=== PATIENT | female | born 1945 | race Two or more races ===

== ENCOUNTER → 2018-01-16 | Outpatient (CLI) | payer MEDICARE, OTHER | END | disposition home health service (06) | LOC: WOU 12:46 | PROVIDERS: ATTEND Podiatrist Foot & Ankle Surgery | DX: L03.116 Cellulitis of left lower limb (principal); E11.42 Type 2 diabetes mellitus with diabetic polyneuropathy; E66.9 Obesity, unspecified; R60.0 Localized edema; Z68.42 Body mass index [BMI] 45.0-49.9, adult; Z79.4 Long term (current) use of insulin; Z85.3 Personal history of malignant neoplasm of breast; Z90.12 Acquired absence of left breast and nipple; E11.65 Type 2 diabetes mellitus with hyperglycemia | CPT/HCPCS: 11042; A6402; Z7610 ==

== ENCOUNTER 2018-01-23 09:22 | Outpatient (CLI) | payer MEDICARE, OTHER | END 2018-01-23 23:59 | disposition home health service (06) | LOC: WOU 09:22 | PROVIDERS: ATTEND Podiatrist Foot & Ankle Surgery | DX: L03.116 Cellulitis of left lower limb (principal); E11.65 Type 2 diabetes mellitus with hyperglycemia; Z79.4 Long term (current) use of insulin; S90.562S Insect bite (nonvenomous), left ankle, sequela; W57.XXXS Bitten or stung by nonvenomous insect and other nonvenomous arthropods, sequela; L97.529 Non-pressure chronic ulcer of other part of left foot with unspecified severity | CPT/HCPCS: 11042; A6402; Z7610 ==

== ENCOUNTER 2018-03-06 09:06 | Outpatient (CLI) | payer MEDICARE, OTHER | END 2018-03-06 23:59 | disposition home or self-care (01) | LOC: WOU 09:06 | PROVIDERS: ATTEND Podiatrist Foot & Ankle Surgery | DX: I87.2 Venous insufficiency (chronic) (peripheral) (principal); L97.828 Non-pressure chronic ulcer of other part of left lower leg with other specified severity; I89.0 Lymphedema, not elsewhere classified; I73.9 Peripheral vascular disease, unspecified; I10 Essential (primary) hypertension; E11.9 Type 2 diabetes mellitus without complications; Z85.3 Personal history of malignant neoplasm of breast; Z90.12 Acquired absence of left breast and nipple; Z79.4 Long term (current) use of insulin | CPT/HCPCS: G0463; Z7610 ==

== ENCOUNTER 2018-03-12 10:22 | Outpatient (CLI) | payer MEDICARE, OTHER | END 2018-03-12 23:59 | disposition home or self-care (01) | LOC: WOU 10:22 | PROVIDERS: ATTEND Podiatrist Foot & Ankle Surgery | DX: I87.2 Venous insufficiency (chronic) (peripheral) (principal); I73.9 Peripheral vascular disease, unspecified | CPT/HCPCS: 93970-TC; Z7610 ==

== ENCOUNTER 2018-03-13 08:45 | Outpatient (CLI) | payer MEDICARE, OTHER | END 2018-03-13 23:59 | disposition home or self-care (01) | LOC: WOU 08:45 | PROVIDERS: ATTEND Podiatrist Foot & Ankle Surgery | DX: R60.0 Localized edema (principal); M76.72 Peroneal tendinitis, left leg; G58.8 Other specified mononeuropathies; I89.0 Lymphedema, not elsewhere classified; L97.828 Non-pressure chronic ulcer of other part of left lower leg with other specified severity | CPT/HCPCS: G0463; Z7610 ==

== ENCOUNTER 2018-03-27 09:21 | Outpatient (CLI) | payer MEDICARE, OTHER | END 2018-03-27 23:59 | disposition home or self-care (01) | LOC: WOU 09:21 | PROVIDERS: ATTEND Podiatrist Foot & Ankle Surgery | DX: I87.312 Chronic venous hypertension (idiopathic) with ulcer of left lower extremity (principal); L97.828 Non-pressure chronic ulcer of other part of left lower leg with other specified severity; M79.672 Pain in left foot; E11.9 Type 2 diabetes mellitus without complications; Z86.718 Personal history of other venous thrombosis and embolism; Z79.899 Other long term (current) drug therapy | CPT/HCPCS: G0463; Z7610 ==

== ENCOUNTER 2018-04-07 10:05 | Outpatient (CLI) | payer MEDICARE, OTHER | END 2018-04-07 23:59 | disposition home or self-care (01) | LOC: WOU 10:05 | PROVIDERS: ATTEND Podiatrist Foot & Ankle Surgery | DX: I87.302 Chronic venous hypertension (idiopathic) without complications of left lower extremity (principal); Z86.718 Personal history of other venous thrombosis and embolism; I89.0 Lymphedema, not elsewhere classified; E11.9 Type 2 diabetes mellitus without complications; Z79.4 Long term (current) use of insulin; Z79.899 Other long term (current) drug therapy | CPT/HCPCS: G0463; Z7610 ==

== ENCOUNTER 2018-06-12 14:49 | Outpatient (CLI) | payer MEDICARE, OTHER | END 2018-06-12 23:59 | disposition home or self-care (01) | LOC: WOU 14:49 | PROVIDERS: ATTEND Podiatrist Foot & Ankle Surgery | DX: R60.0 Localized edema (principal); R93.89 Abnormal findings on diagnostic imaging of other specified body structures | CPT/HCPCS: 93970-TC; Z7610 ==

== ENCOUNTER 2018-06-30 13:45 | Outpatient (CLI) | payer MEDICARE, OTHER | END 2018-06-30 23:59 | disposition home or self-care (01) | LOC: WOU 13:45 | PROVIDERS: ATTEND Podiatrist Foot & Ankle Surgery | DX: I87.2 Venous insufficiency (chronic) (peripheral) (principal); R60.0 Localized edema; M79.672 Pain in left foot; B35.1 Tinea unguium; E11.9 Type 2 diabetes mellitus without complications; Z79.4 Long term (current) use of insulin | CPT/HCPCS: G0463; Z7610 ==

== ENCOUNTER 2018-07-28 13:15 | Outpatient (CLI) | payer MEDICARE, OTHER | END 2018-07-28 23:59 | disposition home or self-care (01) | LOC: VASLAB 13:15 | PROVIDERS: ATTEND Surgery Vascular Surgery | DX: I87.2 Venous insufficiency (chronic) (peripheral) (principal); M79.605 Pain in left leg; M79.604 Pain in right leg; E11.9 Type 2 diabetes mellitus without complications | CPT/HCPCS: G0463 ==

== ENCOUNTER 2018-08-04 10:05 | Outpatient (CLI) | payer MEDICARE, OTHER | END 2018-08-04 23:59 | disposition home or self-care (01) | LOC: WOU 10:05 | PROVIDERS: ATTEND Podiatrist Foot & Ankle Surgery | DX: M65.872 Other synovitis and tenosynovitis, left ankle and foot (principal); G57.82 Other specified mononeuropathies of left lower limb; E11.9 Type 2 diabetes mellitus without complications; Z79.4 Long term (current) use of insulin; E66.9 Obesity, unspecified; Z68.42 Body mass index [BMI] 45.0-49.9, adult; M79.672 Pain in left foot; L90.5 Scar conditions and fibrosis of skin | CPT/HCPCS: G0463 ==